=== PATIENT | male | born 1980 | race Caucasian/White ===

== ENCOUNTER 2022-05-14 07:54 | Outpatient (CLI) | payer OTHER, SELFPAY ==
[2022-05-14 13:04] LABS: Albumin* 4.3 g/dL (3.3-5.0); Chloride* 103 mmol/L (96-114); Sodium* 138 mmol/L (135-149)
[2022-05-14 13:05] LABS: Potassium* 4.1 mmol/L (3.6-5.1)
[2022-05-14 13:06] LABS: Cholesterol* 161 mg/dL (90-199)
[2022-05-14 13:07] LABS: Alanine Aminotransferase* 78 U/L (4-50); Alkaline Phosphatase* 71 U/L (40-150); Aspartate Amino Transferase* 37 U/L (12-35); Bilirubin Total* 0.9 mg/dL (0.1-1.5); Blood Urea Nitrogen* 16 mg/dL (5-24); Calcium* 9.1 mg/dL (8.4-10.6); Carbon Dioxide* 27 mmol/L (20-32); Estimated Glomerular Filt Rate 96 ml/min; Glucose* 112 mg/dL (60-115); Total Protein* 7.2 g/dL (6.0-8.3); Triglycerides* 104 mg/dL (40-149)
[2022-05-14 13:08] LABS: HDL Cholesterol* 44 mg/dL (>=40); LDL Cholesterol Calculated 96 mg/dL (<100)
[2022-05-15 19:10] LABS: Testosterone, Adult Male 274 ng/dL (300-890)
== END 2022-05-14 07:55 | disposition home or self-care (01) ==
PROVIDERS: PCP Family Medicine; Visit Provider Family Medicine
DX: R53.83 Other fatigue (principal); R68.82 Decreased libido
CPT/HCPCS: 80053; 80061; 84403; 84443

== ENCOUNTER 2022-06-14 15:42 | Outpatient (CLI) | payer OTHER, SELFPAY ==
[2022-06-16 15:31] LABS: Testosterone, Adult Male 202 ng/dL (300-890)
== END 2022-06-14 15:43 | disposition home or self-care (01) ==
LOC: LKVREF 15:43
PROVIDERS: PCP Family Medicine; Visit Provider Family Medicine
DX: R79.89 Other specified abnormal findings of blood chemistry (principal)
CPT/HCPCS: 84403

== ENCOUNTER 2022-06-15 11:13 | Outpatient (CLI) | payer OTHER, SELFPAY ==
[2022-06-15 13:53] LABS: PSA Screen* 1.03 ng/mL (0.10-4.00)
== END 2022-06-15 11:14 | disposition home or self-care (01) ==
PROVIDERS: PCP Family Medicine; Visit Provider Family Medicine
DX: E29.1 Testicular hypofunction (principal); Z12.5 Encounter for screening for malignant neoplasm of prostate
CPT/HCPCS: 84153

== ENCOUNTER 2022-11-27 04:20 | Emergency (ER) | payer OTHER, SELFPAY ==
[2022-11-27 04:26] VITALS: BP 128/99; PULSE 87; RESP 18; TEMP 36.2; O2SAT 96; BMI 33.0
--- NOTE | 2022-11-27 04:41 | ED.ABDPAIN ---
HPI - Abdominal Pain General Time Seen by Provider: 04:41 Date Seen: 11/27/22 Chief Complaint: Abdominal Pain Stated Complaint: Left side abdominal pain Time Seen by Provider: 11/27/22 04:40 Source: patient, RN notes reviewed and old records reviewed Mode of arrival: ambulatory Limitations: no limitations History of Present Illness HPI narrative: Patient is very pleasant 42-year-old male with history of appendicitis an appendectomy 3 years ago uncomplicated who comes to the emergency room for evaluation of her regarding left-sided abdominal pain. Patient notes approximately 2200 hours last night or 7 hours ago he began noticing pain on the left side of his abdomen. He thought this may be gas or pain related to stool. He had a bowel movement that was normal but the pain did not improve. He noticed that it were worsen throughout the night and now he is rating it a 7/10 to up to a 9/10. It is associated with an episode of vomiting and diaphoresis. He has not had this in the past. He has not had any fever or chills. He does note that when he was coming over here and his was driving he did have increased pain when hitting bumps. He has not had any unusual fever chills of late. He has not taken anything for discomfort. He gets no relief of the discomfort if he passes gas. Related Data Previous Rx's Medication Instructions Recorded testosterone cypionate 100 mg/mL 50 mg (0.5 mL) IM Q2W #10 mL 07/13/22 intramuscular oil Allergies Allergy/AdvReac Type Severity Reaction Status Date / Time Penicillins Allergy Unknown Unknown Verified 11/27/22 05:43 Review of Systems Status of ROS Reports: 10 or more systems reviewed and unremarkable except as noted in History and below Const Denies: fever or chills ENMT Denies: difficulty swallowing Cardio Denies: chest pain, lightheadedness or shortness of breath with exertion Resp Denies: shortness of breath, cough or wheezing GI Reports: abdominal pain, nausea and vomiting; Denies: diarrhea, difficulty swallowing or blood in stool Denies: painful urination, urinary frequency, urinary urgency or blood in urine Musculo Denies: back pain Allergy/Immuno Denies: wheezing PFSH PFSH Medical History Family history of prostate cancer ?Z80.42 - Family history of malignant neoplasm of prostate (ICD-10) Decreased testosterone level (05/11/22) ?R79.89 - Other specified abnormal findings of blood chemistry (ICD-10) Lip lesion ?K13.0 - Diseases of lips (ICD-10) Family history of colonic polyps ?Z83.71 - Family history of colonic polyps (ICD-10) Surgical History History of placement of ear tubes ?Z96.22 - Myringotomy tube(s) status (ICD-10) Hx of adenoidectomy ?Z90.89 - Acquired absence of other organs (ICD-10) Status post laparoscopic appendectomy (01/17/20) ?Z90.49 - Acquired absence of other specified parts of digestive tract (ICD-10) Family History Mother Colon polyp, Onset Age: 60 Father Hypothyroidism Maternal Grandfather Colon cancer, Onset Age: 50 Paternal Grandfather Coronary artery disease, Onset Age: 70 Other Family history of prostate cancer Social History Smoking Status: Never smoker Do you use any of these nicotine containing products: None How often do you have a drink containing alcohol: 2-4 times a month How many standard drinks containing alcohol do you have on a typical day: 1 or 2 AUDIT-C Alcohol total score: 2 Non-prescribed substance use: denies use Little interest or pleasure in doing things: several days Feeling down, depressed, or hopeless: not at all Exam Narrative: Exam Narrative: Patient is alert and oriented. He is in mild distress. External ears eyes nose clear. Heart with regular rate and rhythm and lungs are clear bilaterally. Abdomen is soft there is some mild tenderness noted non localized in left part of the abdomen. No CVA tenderness with percussion. I did move the bed in pain was not increased. I did hit the bottom of his shoe and he did not have increased pain in his abdomen. Moving all extremities. Examination of the torso shows no lesions or vesicles or unusual redness to indicate shingles. Const: Vital Signs, click to edit/add: Vital Signs - 24 hr 11/27/22 04:26 11/27/22 06:33 Temperature 97.1 F L 97.7 F Pulse Rate [Pulse Oximeter] 87 70 Respiratory Rate 18 18 Blood Pressure [Le ft Upper Arm] 128/99 H 126/63 Pulse Oximetry 96 Oxygen Delivery Me thod Room Air Documenting provider has reviewed patient's vital signs: yes Course Course Hospital Course: Differential diagnosis includes but is not limited to diverticulitis, colitis, ureteral colic/kidney stone, urinary tract infection, pyelonephritis, constipation, colic. Will place IV and use Toradol Zofran and fluids for discomfort a and nausea. Will check blood work to include CBC, comprehensive panel, lipase, urinalysis, CRP. Plan on CT of the abdomen and pelvis. Reevaluation(s) Reevaluation #1: Patient notes that he is feeling much better after Toradol fluids and Zofran. Vital Signs Vital signs: Initial Vital Signs Temperature 97.1 F L 11/27/22 04:26 Temperature Source Temporal Artery Scan 11/27/22 04:26 Pulse Rate 87 11/27/22 04:26 Respiratory Rate 18 11/27/22 04:26 Blood Pressure 128/99 H 11/27/22 04:26 Blood Pressure Mean 108 H 11/27/22 04:26 Blood Pressure Position Supine 11/27/22 04:26 Pulse Oximetry 96 11/27/22 04:26 Oxygen Delivery Method Room Air 11/27/22 04:26 Vital Signs Temperature 97.1 F L 11/27/22 04:26 Pulse Rate 87 11/27/22 04:26 Respiratory Rate 18 11/27/22 04:26 Blood Pressure 128/99 H 11/27/22 04:26 Pulse Oximetry 96 11/27/22 04:26 Oxygen Delivery Method Room Air 11/27/22 04:26 Temperature 97.7 F 11/27/22 06:33 Pulse Rate 70 11/27/22 06:33 Respiratory Rate 18 11/27/22 06:33 Blood Pressure 126/63 11/27/22 06:33 Pulse Oximetry 96 11/27/22 04:26 Oxygen Delivery Method Room Air 11/27/22 04:26 MDM - Abdominal Pain MDM Narrative Medical decision making narrative: 1. Abdominal pain-CT of the abdomen does not show any evidence of colitis, diverticulitis, kidney stone. It does show various areas of fluid-filled colon suggestive of a diarrheal type illness. White count is reassuring as is CRP. No abnormal lipase. Given this patient will be diagnosed with a diarrhea type illness although he has not experienced any diarrhea at this time. We did talk about the possibility that this still could be diverticulitis given that the onset of symptoms was only 6-7 hours ago but I did talk about the risk of antibiotics as well and therefore we will monitor. Symptomatic cares to include ibuprofen 600 mg every 8 hours as needed for discomfort. Will give Luis a small amount of [place] 5/325 1-2 tabs p.o. q.4-[address] 2. Disposition-home. Patient notes no recent travel to [place], recent antibiotic use or the eating of uncooked meats. At this time will discharge him home. He states that he is camping near his house but I do suggest he go back to his home. If he starts experiencing diarrhea he should not be alarmed. However, if he has worsening pain, the onset of fever, persistent vomiting I would ask him to return to the emergency room. He voices understanding. Medical Records Attestation: I reviewed the patient's medical records. Lab Data Attestation: I reviewed the patient's lab results. Labs: Lab Results 11/27/22 11/27/22 Range/Units 04:38 04:54 WBC 8.52 (4.50-11.00) K/uL RBC 5.76 (4.30-5.90) m/uL Hgb 17.3 (13.5-17.5) gm/dL Hct 49.9 (37.0-53.0) % MCV 87 (80-100) fL MCH 30 (26-34) pg MCHC 35 (32-36) gm/dL RDW Coeff of Tod 12.8 (11.5-15.5) % Plt Count 214 (140-440) K/uL Neut % (Auto) 77.2 H (42.0-72.0) % Lymph % (Auto) 13.0 L (20-44) % [place] % (Auto) 7.2 (0.0-11.0) % Eos % (Auto) 1.9 (0.0-7.0) % Baso % (Auto) 0.5 (0.0-3.0) % Neut # (Auto) 6.60 (1.7-7.0) K/uL Lymph # (Auto) 1.10 (0.90-2.90) K/uL [place] # (Auto) 0.60 (0.00-0.90) K/UL Eos # (Auto) 0.16 (0.00-0.50) K/uL Baso # (Auto) 0.04 (0.00-0.30) K/uL Abs Immat Gran (auto) 0.02 (0.00-0.30) K/uL Imm/Tot Granulo (auto) 0.2 % Sodium 138 (135-149) mmol/L Potassium 4.0 (3.6-5.1) mmol/L Chloride 100 (96-114) mmol/L Carbon Dioxide 28 (20-32) mmol/L BUN 23 (5-24) mg/dL Creatinine 1.0 (0.5-1.5) mg/dL Estimated Creat Clear 108.75 Estimated GFR 96 ml/min Glucose 151 H (60-115) mg/dL Calcium 9.5 (8.4-10.6) mg/dL Total Bilirubin 1.1 (0.1-1.5) mg/dL AST 47 H (12-35) U/L ALT 78 H (4-50) U/L Alkaline Phosphatase 81 (40-150) U/L C-Reactive Protein 0.6 (0.5-1.0) mg/dL Total Protein 8.6 H (6.0-8.3) g/dL Albumin 5.1 H (3.3-5.0) g/dL Lipase 69 (23-300) U/L Urine Color Yellow (Yellow) Urine Appearance Clear (Clear) Urine pH 6.0 (5.0-8.5) Ur Specific [place] 1.025 (1.000-1.030) Urine Protein Trace A (Negative) Urine Glucose (UA) Negative (Negative) Urine Ketones Negative (Negative) Urine Blood Negative (Negative) Urine Nitrite Negative (Negative) Urine Bilirubin Negative (Negative) Urine Urobilinogen 0.2 (0.2-1.0) Ur Leukocyte Esterase Negative (Negative) Urine RBC 0-2 (0-2) Urine WBC 0-2 (0-5) Ur Squamous Epith Cells None (None-Few) Urine Bacteria None (None) Urine Mucus Few A (None) Imaging Data CT scan - abdomen: Attestation: I have reviewed the pertinent imaging results. Radiologist's impression: Lower chest: Unremarkable. Liver: Unremarkable. Normal in size and attenuation. No suspicious masses. Gallbladder and bile ducts: Unremarkable. No stones or inflammation. No biliary dilatation. Pancreas: Unremarkable. No mass or inflammation. Spleen: Unremarkable. Normal in size. No masses. Adrenal glands: Stable small right adrenal adenoma. Kidneys: Unremarkable. No suspicious masses, stones, or hydronephrosis. GI tract: Moderate fluid retention throughout most of the colon. Unremarkable small bowel. No obstructive changes or focal inflammation. Post appendectomy. Vasculature: Abdominal aorta is normal in caliber. Mesenteric arteries are patent. Lymph nodes: No lymphadenopathy. Peritoneum/Abdominal Wall: Unremarkable. No sign of mass or infiltration. No free air or significant free fluid. Pelvis: Unremarkable. Bones: Unremarkable for age. IMPRESSION: Moderate fluid retention throughout the colon suggesting diarrheal illness. No other acute or specific finding to explain left-sided abdomen pain. Discharge Plan Discharge Clinical Impression: Abdominal pain Qualifiers: Abdominal location: left upper quadrant Qualified Code(s): R10.12 - Left upper quadrant pain Patient Disposition: Home, Self-Care Condition: Improved Additional Instructions: For discomfort, ibuprofen 600 mg every 8 hours as needed. Occasionally you may use a tablet of Vicodin which is given via our [employer] machine. If you are experiencing worsening pain, vomiting, fever please return to the emergency room for re-evaluation. Prescriptions: No Action testosterone cypionate 100 mg/mL oil 50 mg IM Q2W Qty: 10 1RF Follow Up/Referrals: Lamont Aj MD [Primary Care Provider] - Stand Alone Forms: [employer] Info Instructions
[2022-11-27 04:43] LABS: Appearance Urine Clear (Clear); Bilirubin Urine Negative (Negative); Blood Urine Negative (Negative); Color Urine Yellow (Yellow); Glucose Urine Negative (Negative); Ketones Urine Negative (Negative); Leukocyte Esterase Urine Negative (Negative); Nitrite Urine Negative (Negative); Protein Urine Trace (Negative); Specific Gravity Urine 1.025 (1.000-1.030); Urobilinogen Urine 0.2 (0.2-1.0)
--- NOTE | 2022-11-27 04:47 | CRLHL7_ITS ---
For Patients: As a result of the Century Cures Act, medical imaging exams and procedure reports are released immediately into your electronic medical record. You may view this report before your referring provider. If you have questions, please contact your health care provider. INDICATION: Left-sided abdomen pain. TECHNIQUE: CT abdomen and pelvis acquired with 100 cc Isovue 370 IV contrast. COMPARISON: 01/17/2020. FINDINGS: Lower chest: Unremarkable. Liver: Unremarkable. Normal in size and attenuation. No suspicious masses. Gallbladder and bile ducts: Unremarkable. No stones or inflammation. No biliary dilatation. Pancreas: Unremarkable. No mass or inflammation. Spleen: Unremarkable. Normal in size. No masses. Adrenal glands: Stable small right adrenal adenoma. Kidneys: Unremarkable. No suspicious masses, stones, or hydronephrosis. GI tract: Moderate fluid retention throughout most of the colon. Unremarkable small bowel. No obstructive changes or focal inflammation. Post appendectomy. Vasculature: Abdominal aorta is normal in caliber. Mesenteric arteries are patent. Lymph nodes: No lymphadenopathy. Peritoneum/Abdominal Wall: Unremarkable. No sign of mass or infiltration. No free air or significant free fluid. Pelvis: Unremarkable. Bones: Unremarkable for age. IMPRESSION: Moderate fluid retention throughout the colon suggesting diarrheal illness. No other acute or specific finding to explain left-sided abdomen pain. Please note that all CT scans at this facility use dose modulation, iterative reconstruction, and/or weight-based dosing when appropriate to reduce radiation dose to as low as reasonably achievable. Dictated by Abelino Estrella MD @ 11/27/2022 6:10:50 AM (Electronically Signed)
[2022-11-27 04:52] LABS: Mucus Urine Few; RBC Urine 0-2 (0-2); WBC Urine 0-2 (0-5)
[2022-11-27] MEDS: ONDANSETRON 2 MG/ML inj 4 MG IVP (05:07)
[2022-11-27] MEDS: 0.9 % SODIUM CHLORIDE 1000 ml 1,000 ML IV (05:07)
[2022-11-27] MEDS: KETOROLAC 15 MG/ML inj IVP (05:07)
[2022-11-27 05:14] LABS: Basophils Absolute Auto 0.04 K/uL (0.00-0.30); Basophils Percent Auto 0.5 % (0.0-3.0); Eosinophils Absolute Auto 0.16 K/uL (0.00-0.50); Eosinophils Percent Auto 1.9 % (0.0-7.0); Hematocrit 49.9 % (37.0-53.0); Hemoglobin* 17.3 gm/dL (13.5-17.5); Immature Granulocytes Abs Auto 0.02 K/uL (0.00-0.30); Immature Granulocytes Pct Auto 0.2 %; Mean Corpuscular HGB Conc 35 gm/dL (32-36); Mean Corpuscular Hemoglobin 30 pg (26-34); Mean Corpuscular Volume 87 fL (80-100); Monocytes Percent Auto 7.2 % (0.0-11.0); Neutrophils Percent Auto 77.2 % (42.0-72.0); Platelet Count* 214 K/uL (140-440); RDW Coefficient of Variation % 12.8 % (11.5-15.5); Red Blood Count 5.76 m/uL (4.30-5.90); White Blood Count* 8.52 K/uL (4.50-11.00)
[2022-11-27 05:15] LABS: Slide Review Reflex No
[2022-11-27 05:22] LABS: Albumin* 5.1 g/dL (3.3-5.0); Chloride* 100 mmol/L (96-114); Sodium* 138 mmol/L (135-149)
[2022-11-27 05:24] LABS: Est. Creatinine Clearance* 108.75
[2022-11-27 05:25] LABS: Alanine Aminotransferase* 78 U/L (4-50); Alkaline Phosphatase* 81 U/L (40-150); Aspartate Amino Transferase* 47 U/L (12-35); Bilirubin Total* 1.1 mg/dL (0.1-1.5); Blood Urea Nitrogen* 23 mg/dL (5-24); Calcium* 9.5 mg/dL (8.4-10.6); Carbon Dioxide* 28 mmol/L (20-32); Estimated Glomerular Filt Rate 96 ml/min; Glucose* 151 mg/dL (60-115); Lipase* 69 U/L (23-300); Total Protein* 8.6 g/dL (6.0-8.3)
[2022-11-27 05:29] LABS: C Reactive Protein* 0.6 mg/dL (0.5-1.0)
[2022-11-27 06:33] VITALS: BP 126/63; PULSE 70; RESP 18; TEMP 36.5
--- NOTE | 2022-11-27 06:34 | PC.NURSE ---
patient states understanding to DC instructions, no further questions. patient left with all belongings
== END 2022-11-27 06:34 | disposition home or self-care (01) ==
PROVIDERS: Emergency Provider Family Medicine; PCP Family Medicine
DX: R10.9 Unspecified abdominal pain (principal)
CPT/HCPCS: 36415; 74177; 80053; 81001; 83690; 85025; 86140; 96374; 96375; 99284; 99285; J1885; J2405; J7030; Q9967